=== PATIENT | female | born 1990 | race Caucasian/White ===

== ENCOUNTER 2018-01-08 17:21 | Emergency (ER) | payer SELFPAY ==
[~2018-01-08] VITALS: Ht 170.2 cm; Wt 111.4 kg
[2018-01-08 17:35] VITALS: Ht 170.2 cm; Wt 111.4 kg
[2018-01-08] MEDS ORDERED: CELEXA10 MG PO (17:35)
[2018-01-08] MEDS ORDERED: ZOFRAN4 MG PO ×2 (17:36→20:06)
[2018-01-08 18:18] LABS: BASOPHILS 0.2 % (0-2); EOSINOPHILS 0.7 % (0-7); HEMATOCRIT 36.2 % (36.0-48.0); HEMOGLOBIN 12.2 g/dL (12-16); IMMATURE GRANULOCYTES 0.2 % (0-5); LYMPHOCYTES 26.2 % (15-50); MCH 27.7 pg (26.0-34.0); MCHC 33.7 g/dL (31.0-37.0); MCV 82.1 fL (80.0-100.0); MEAN PLATELET VOLUME 9.7 fL (7.4-10.4); MONOCYTES 6.9 % (2-11); NEUTROPHILS 65.8 % (40-80); PLATELET COUNT 277 10x3/uL (130-400); RBC 4.41 10x6/uL (4.00-5.40); RDW 14.1 % (11.5-14.5); WBC 9.7 10x3/uL (4.8-10.8)
[2018-01-08 18:19] LABS: APPEARANCE HAZY (CLEAR); BILIRUBIN NEGATIVE (NEGATIVE); COLOR YELLOW (YELLOW); GLUCOSE NEGATIVE (NEGATIVE); KETONE NEGATIVE (NEGATIVE); NITRITE NEGATIVE (NEGATIVE); PROTEIN TRACE mg/dL (NEGATIVE); SPECIFIC GRAVITY 1.025 (1.005-1.020); UROBILINOGEN NORMAL (NORMAL)
[2018-01-08 18:26] LABS: WHITE CELLS - URINE 0-5 /hpf (0-5)
[2018-01-08 18:27] LABS: RED CELLS - URINE 0-5 /hpf (0-5)
[2018-01-08 18:29] LABS: BACTERIA MODERATE /hpf (NONE SEEN)
[2018-01-08 18:32] LABS: ALBUMIN 3.1 g/dL (3.4-5.0); ALKALINE PHOSPHATASE 64 U/L (46-116); ALT (SGPT) 18 U/L (10-68); AMYLASE - SERUM 18 U/L (25-115); BILIRUBIN - TOTAL 0.27 mg/dL (0.2-1.3); CALC OSMOLALITY 272 mosm/kg (275-300); CALCIUM 8.5 mg/dL (8.5-10.1); CARBON DIOXIDE 22.9 mmol/L (21.0-32.0); CHLORIDE - SERUM 103 mmol/L (98-107); CREATININE - SERUM 0.5 mg/dL (0.6-1.3); GLUCOSE 84 mg/dL (74-106); LIPASE 86 U/L (73-393); POTASSIUM - SERUM 3.6 mmol/L (3.5-5.1); PROTEIN - SERUM 7.1 g/dL (6.4-8.2); SODIUM 138 mmol/L (136-145); UREA NITROGEN 6 mg/dL (7-18); eGFR NON AFRICAN AMERICAN > 90 mL/min (90-120)
[2018-01-08 20:37] VITALS: BP 120/79
== END 2018-01-08 20:37 | disposition home or self-care (01) ==
LOC: D.ER 17:21
PROVIDERS: Family Medicine
DX: O21.0 Mild hyperemesis gravidarum (principal); Z3A.13 13 weeks gestation of pregnancy; E86.9 Volume depletion, unspecified; R51 Headache

== ENCOUNTER 2018-03-22 22:35 | Outpatient (CLI) | payer SELFPAY ==
[2018-01-08 17:35] VITALS: BMI 38.4
[~2018-03-22 22:35] MED LIST: CELEXA10 MG PO; ZOFRAN4 MG PO
[2018-03-22 22:50] LABS: APPEARANCE CLEAR (CLEAR); BILIRUBIN NEGATIVE (NEGATIVE); COLOR YELLOW (YELLOW); GLUCOSE NEGATIVE (NEGATIVE); KETONE NEGATIVE (NEGATIVE); NITRITE NEGATIVE (NEGATIVE); PROTEIN TRACE mg/dL (NEGATIVE); UROBILINOGEN NORMAL (NORMAL)
[2018-03-22 22:52] LABS: BACTERIA MODERATE /hpf (NONE SEEN); EPITHELIAL CELLS 0-5 /hpf (0-5); RED CELLS - URINE 0-5 /hpf (0-5); WHITE CELLS - URINE 0-5 /hpf (0-5)
== END 2018-03-22 23:19 | disposition home or self-care (01) ==
LOC: D.LDO 22:35
PROVIDERS: Obstetrics & Gynecology
DX: O26.892 Other specified pregnancy related conditions, second trimester (principal); Z3A.21 21 weeks gestation of pregnancy; R11.2 Nausea with vomiting, unspecified

== ENCOUNTER → 2018-06-08 09:20 | Outpatient (CLI) | payer BC ==
[2018-01-08 17:35] VITALS: BMI 38.4
--- NOTE | 2018-06-12 12:17 | EC ---
PATIENT:LEYDA OLIVEROS DATE OF SERVICE: 06/08/18 SEX: F MEDICAL RECORD: [id number] DATE OF : [birth year] [facility] [place] AGE OF PATIENT: 27 ADMISSION DATE: 06/08/18 REFERRING PHYSICIAN: INTERPRETING PHYSICIAN: CALI IBRAHIM MD ECHOCARDIOGRAM REPORT ECHO CHARGES 4 ECHO COMPLETE Date: 06/08/18 CLINICAL DIAGNOSIS: /PALPITATIONS/ DIZZINESS/MURMUR ECHOCARDIOGRAPHIC MEASUREMENTS (adult normal given) AC root (d.<3.7cm) 3.0 cm LV Septum d (<1.2 cm> 1.1 cm Valve Excursion 2.1 cm LV Septum (systole) 1.6 cm Left Atria (s.<4.0cm> 4.2 cm LVPW d(<1.2cm) 1.1 cm RV (d.<2.3cm) 2.5 cm LVPW (sytole) 2.0 cm LV diastole(<5.6CM) 5.2 cm MV E-F(>70mm/sec) cm LV systole 2.9 cm LVOT Diameter 1.9 cm MV exc.(>10mm) cm Est.ejection fraction (50-75%) % DOPPLER: LVIT cm/sec A 102 cm/sec E 126 cm/sec LA cm/sec RVSP 32.3 mmHg LVOT 137 cm/sec AOP1/2T m/s Asc. Ao 186 cm/sec RVOT 87.0 cm/sec RA cm/sec PA 130 cm/sec AV Gradient Peak 14.0 mmHg AV Mean 6.9 mmHg AV Area 2.6 cm MV Gradient Peak 7.4 mmHg MV Mean 3.3 mmHg MV Area cm COMMENTS: OP - HC Physics Instructor: Tres COLINOE Litigation Docket Manager: 3 Dr. Villar TAPE# PACS Pericardial Effusion N DATE OF SERVICE: 06/08/2018 No LVH. LV internal dimension is normal. Wall motion is normal. EF is greater than or equal to 55%. Aortic valve is tricuspid. No evidence of stenosis by Doppler interrogation. Left atrium is normal. Mitral valve shows no prolapse. Trace MR. Right-sided chamber is grossly normal. Trace TR. TRANSINT:[id number] Voice Confirmation ID: [id number] DOCUMENT ID: [id number] ECHOCARDIOGRAM REPORT [id number] GILOTTI,LEYDACALI DONAHUE MD at 1217 CC: [id number] DICTATION DATE: 06/09/18 1515 TEMPLATE WORKER: 06/09/18 1615 DEP CLI 06/08/18 [id number] [place] [address]
== END | disposition home or self-care (01) ==
LOC: D.HCCARDIO 09:20
PROVIDERS: ATTEND Internal Medicine Interventional Cardiology
DX: R01.1 Cardiac murmur, unspecified (principal)

== ENCOUNTER 2018-06-22 20:26 | Outpatient (CLI) | payer BC ==
[2018-01-08 17:35] VITALS: BMI 38.4
[2018-06-22 21:28] LABS: APPEARANCE CLEAR (CLEAR); BILIRUBIN NEGATIVE (NEGATIVE); COLOR YELLOW (YELLOW); GLUCOSE NEGATIVE (NEGATIVE); KETONE NEGATIVE (NEGATIVE); NITRITE NEGATIVE (NEGATIVE); PROTEIN NEGATIVE (NEGATIVE); UROBILINOGEN NORMAL (NORMAL)
[2018-06-22 21:34] LABS: BACTERIA MODERATE /hpf (NONE SEEN); EPITHELIAL CELLS OCC /hpf (0-5); WHITE CELLS - URINE 0-5 /hpf (0-5)
[2018-06-22 21:49] LABS: BASOPHILS 0.1 % (0-2); EOSINOPHILS 0.8 % (0-7); HEMATOCRIT 30.7 % (36.0-48.0); HEMOGLOBIN 9.5 g/dL (12-16); IMMATURE GRANULOCYTES 0.5 % (0-5); LYMPHOCYTES 26.5 % (15-50); MCH 24.8 pg (26.0-34.0); MCHC 30.9 g/dL (31.0-37.0); MCV 80.2 fL (80.0-100.0); MEAN PLATELET VOLUME 9.5 fL (7.4-10.4); MONOCYTES 10.5 % (2-11); NEUTROPHILS 61.6 % (40-80); PLATELET COUNT 291 10x3/uL (130-400); RBC 3.83 10x6/uL (4.00-5.40); RDW 16.2 % (11.5-14.5); WBC 10.6 10x3/uL (4.8-10.8)
[2018-06-22 22:05] LABS: ALBUMIN 2.2 g/dL (3.4-5.0); ALKALINE PHOSPHATASE 190 U/L (46-116); ALT (SGPT) 15 U/L (10-68); BILIRUBIN - TOTAL 0.13 mg/dL (0.2-1.3); CALC OSMOLALITY 274 mosm/kg (275-300); CALCIUM 8.2 mg/dL (8.5-10.1); CARBON DIOXIDE 24.6 mmol/L (21.0-32.0); CHLORIDE - SERUM 105 mmol/L (98-107); CREATININE - SERUM 0.4 mg/dL (0.6-1.3); GLUCOSE 81 mg/dL (74-106); POTASSIUM - SERUM 3.5 mmol/L (3.5-5.1); SODIUM 140 mmol/L (136-145); UREA NITROGEN 5 mg/dL (7-18); eGFR NON AFRICAN AMERICAN > 90 mL/min (90-120)
== END 2018-06-23 00:06 ==
LOC: D.LDO 20:26 → D.LD 23:19 → D.LDO 06-23 00:06
PROVIDERS: ATTEND Obstetrics & Gynecology
DX: O26.893 Other specified pregnancy related conditions, third trimester (principal); Z3A.34 34 weeks gestation of pregnancy

== ENCOUNTER 2018-07-09 21:04 | Outpatient (CLI) | payer BC ==
[2018-01-08 17:35] VITALS: BMI 38.4
[2018-07-09 21:59] LABS: APPEARANCE CLEAR (CLEAR); BILIRUBIN NEGATIVE (NEGATIVE); COLOR STRAW (YELLOW); GLUCOSE NEGATIVE (NEGATIVE); KETONE NEGATIVE (NEGATIVE); NITRITE NEGATIVE (NEGATIVE); PROTEIN NEGATIVE (NEGATIVE); UROBILINOGEN NORMAL (NORMAL)
[2018-07-09 22:06] LABS: BACTERIA MODERATE /hpf (NONE SEEN); RED CELLS - URINE 0-5 /hpf (0-5); WHITE CELLS - URINE 0-5 /hpf (0-5)
[2018-07-09 22:11] LABS: UDS - AMPHET NEGATIVE QUAL (NEGATIVE); UDS - BARB NEGATIVE QUAL (NEGATIVE); UDS - BENZO NEGATIVE QUAL (NEGATIVE); UDS - COCAINE NEGATIVE QUAL (NEGATIVE); UDS - OPIATE NEGATIVE QUAL (NEGATIVE); UDS - PCP NEGATIVE QUAL (NEGATIVE); UDS - THC NEGATIVE QUAL (NEGATIVE)
== END 2018-07-10 08:02 | disposition home or self-care (01) ==
LOC: D.LDO 21:04 → D.LD 23:33 → D.LDO 07-10 08:02
PROVIDERS: ATTEND Obstetrics & Gynecology
DX: O47.1 False labor at or after 37 completed weeks of gestation (principal); Z3A.37 37 weeks gestation of pregnancy; O76 Abnormality in fetal heart rate and rhythm complicating labor and delivery

== ENCOUNTER → 2018-07-11 12:32 | Outpatient (CLI) | payer BC ==
[2018-01-08 17:35] VITALS: BMI 38.4
[2018-07-11 13:03] LABS: PROTEIN - URINE 11.1 mg/dL (0.0-11.9)
== END | disposition home or self-care (01) ==
LOC: D.LDO 12:32
PROVIDERS: ATTEND Obstetrics & Gynecology
DX: O36.8130 Decreased fetal movements, third trimester, not applicable or unspecified (principal); Z3A.38 38 weeks gestation of pregnancy

== ENCOUNTER 2018-07-15 04:22 | Inpatient (IN) | payer BC ==
[2018-07-15 04:44] VITALS: BP 148/92; BMI 44.7
[2018-07-15 05:07] LABS: HEMATOCRIT 34.7 % (36.0-48.0); MCH 24.9 pg (26.0-34.0); MCHC 31.7 g/dL (31.0-37.0); MCV 78.5 fL (80.0-100.0); MEAN PLATELET VOLUME 9.3 fL (7.4-10.4); RBC 4.42 10x6/uL (4.00-5.40); RDW 16.3 % (11.5-14.5); WBC 15.9 10x3/uL (4.8-10.8)
[2018-07-15 07:49] VITALS: BP 148/76
[2018-07-15 08:53] LABS: UDS - AMPHET NEGATIVE QUAL (NEGATIVE); UDS - BARB NEGATIVE QUAL (NEGATIVE); UDS - BENZO NEGATIVE QUAL (NEGATIVE); UDS - COCAINE NEGATIVE QUAL (NEGATIVE); UDS - OPIATE NEGATIVE QUAL (NEGATIVE); UDS - PCP NEGATIVE QUAL (NEGATIVE); UDS - THC NEGATIVE QUAL (NEGATIVE)
[2018-07-15 09:00] LABS: APPEARANCE CLOUDY (CLEAR); BILIRUBIN NEGATIVE (NEGATIVE); COLOR YELLOW (YELLOW); GLUCOSE NEGATIVE (NEGATIVE); KETONE NEGATIVE (NEGATIVE); NITRITE NEGATIVE (NEGATIVE); PROTEIN 2+ mg/dL (NEGATIVE); UROBILINOGEN NORMAL (NORMAL)
[2018-07-15 09:02] LABS: RED CELLS - URINE >50 /hpf (0-5)
[2018-07-15 09:03] LABS: BACTERIA MODERATE /hpf (NONE SEEN)
[2018-07-15 10:13] VITALS: BMI 44.6
[2018-07-15 12:33] VITALS: BP 152/87
[2018-07-15 19:16] VITALS: BP 147/85
[2018-07-16 07:22] LABS: RAPID PLASMA REAGIN Non Reactive (Non Reactive)
== END 2018-07-15 20:55 | disposition home or self-care (01) | DRG 807 ==
LOC: D.LDO 04:22 → D.LD 04:34
PROVIDERS: ADMIT Obstetrics & Gynecology
PROC: 10907ZC Drainage of Amniotic Fluid, Therapeutic from Products of Conception, Via Natural or Artificial Opening (ICD-10-PCS; principal; 2018-07-15)
PROC: 10E0XZZ Delivery of Products of Conception, External Approach (ICD-10-PCS; 2018-07-15)
DX: O13.4 Gestational [pregnancy-induced] hypertension without significant proteinuria, complicating childbirth (principal); Z37.0 Single live birth; Z3A.38 38 weeks gestation of pregnancy; O99.344 Other mental disorders complicating childbirth; F41.9 Anxiety disorder, unspecified; O99.324 Drug use complicating childbirth; F19.90 Other psychoactive substance use, unspecified, uncomplicated